=== PATIENT | female | born 1995 | race Caucasian/White ===

== ENCOUNTER 2017-01-09 12:44 | Emergency (ER) | payer OTHER ==
[~2017-01-09] VITALS: Ht 165.1 cm; Wt 113.8 kg
[~2017-01-09 12:44] MED LIST: COL100 PO; MAC100 PO; NORCO1 TA2 PO; OMEPRAZOLE DR20 M1 PO; ZOFRAN ODT4 MG SL
[2017-01-09 16:13] VITALS: BP 123/72
== END 2017-01-09 16:13 | disposition home or self-care (01) ==
LOC: ED 12:44
DX: J02.9 Acute pharyngitis, unspecified (principal); Z88.1 Allergy status to other antibiotic agents

== ENCOUNTER 2017-07-24 07:34 | Emergency (ER) | payer OTHER ==
[~2017-07-24] VITALS: Ht 170.2 cm; Wt 110.7 kg
[2017-07-24 09:54] LABS: CARBON DIOXIDE 26.3 mmol/L (21-32); CHLORIDE SERUM 105 mmol/L (98-107); CREATININE SERUM 0.8 mg/dL (0.6-1.0); GFR1 > 60 mL/min; GLUCOSE SERUM 82 mg/dL (74-106); POTASSIUM SERUM 3.7 mmol/L (3.5-5.1); SODIUM SERUM 140 mmol/L (136-145)
[2017-07-24 10:00] LABS: ALKALINE PHOSPHATASE 75 U/L (46-116); ALT/SGPT 38 U/L (14-59); AST/SGOT 19 U/L (15-37); LIPASE 86 IU/L (73-393); TOTAL PROTEIN, SERUM 6.7 g/dL (6.4-8.2)
[2017-07-24 10:01] LABS: ALBUMIN 3.3 g/dL (3.4-5.0)
[2017-07-24 11:32] LABS: BASOPHIL % 0.3 % (0-2); PLATELET COUNT 244 x10^3mcL (130-400); RED CELL DISTRIBUTION WIDTH 13.3 % (11.5-14.5)
[2017-07-24 15:58] VITALS: BP 128/71
== END 2017-07-24 15:55 | disposition home or self-care (01) ==
LOC: ED 07:34
PROVIDERS: Emergency Medicine
DX: N39.0 Urinary tract infection, site not specified (principal); R10.13 Epigastric pain; Z88.0 Allergy status to penicillin; Z90.49 Acquired absence of other specified parts of digestive tract; Z87.19 Personal history of other diseases of the digestive system
CPT/HCPCS: J1170; J1200; J2060; J2405; J2765

== ENCOUNTER 2017-07-26 06:45 | Emergency (ER) | payer OTHER ==
[2017-07-26 09:31] LABS: BASOPHIL % 0.4 % (0-2); PLATELET COUNT 245 x10^3mcL (130-400); RED CELL DISTRIBUTION WIDTH 13.1 % (11.5-14.5)
[2017-07-26 09:43] LABS: CARBON DIOXIDE 25.7 mmol/L (21-32); CHLORIDE SERUM 104 mmol/L (98-107); CREATININE SERUM 0.9 mg/dL (0.6-1.0); GFR1 > 60 mL/min; GLUCOSE SERUM 83 mg/dL (74-106); POTASSIUM SERUM 3.9 mmol/L (3.5-5.1); SODIUM SERUM 138 mmol/L (136-145)
[2017-07-26 09:47] LABS: ALBUMIN 3.8 g/dL (3.4-5.0); ALKALINE PHOSPHATASE 74 U/L (46-116); ALT/SGPT 46 U/L (14-59); AMYLASE 31 U/L (25-115); AST/SGOT 22 U/L (15-37); BILIRUBIN TOTAL 1.02 mg/dL (0.20-1.00); LIPASE 105 IU/L (73-393); TOTAL PROTEIN, SERUM 7.5 g/dL (6.4-8.2)
[2017-07-26 11:10] VITALS: BP 114/63
== END 2017-07-26 11:11 | disposition home or self-care (01) ==
LOC: ED 06:45
PROVIDERS: Specialist
DX: R10.30 Lower abdominal pain, unspecified (principal); R11.10 Vomiting, unspecified
CPT/HCPCS: 83880; J1885; J2405; J7030

== ENCOUNTER 2017-07-26 19:03 | Emergency (ER) | payer OTHER ==
[2017-07-26 19:50] LABS: CALCIUM 8.7 mg/dL (8.5-10.1); CARBON DIOXIDE 21.8 mmol/L (21-32); CHLORIDE SERUM 106 mmol/L (98-107); GFR1 > 60 mL/min; GLUCOSE SERUM 88 mg/dL (74-106); POTASSIUM SERUM 3.5 mmol/L (3.5-5.1); SODIUM SERUM 140 mmol/L (136-145)
[2017-07-26 19:54] LABS: ALBUMIN 3.8 g/dL (3.4-5.0); ALKALINE PHOSPHATASE 81 U/L (46-116); ALT/SGPT 41 U/L (14-59); AMYLASE 36 U/L (25-115); AST/SGOT 19 U/L (15-37); BILIRUBIN TOTAL 0.8 mg/dL (0.20-1.00); LIPASE 116 IU/L (73-393); TOTAL PROTEIN, SERUM 7.3 g/dL (6.4-8.2)
[2017-07-26 20:02] LABS: BASOPHIL % 0.3 % (0-2); PLATELET COUNT 252 x10^3mcL (130-400)
[2017-07-27 01:04] VITALS: BP 119/75
== END 2017-07-27 01:04 | disposition home or self-care (01) ==
LOC: ED 19:03
PROVIDERS: Emergency Medicine
DX: N83.202 Unspecified ovarian cyst, left side (principal); K21.9 Gastro-esophageal reflux disease without esophagitis; E66.9 Obesity, unspecified; Z90.49 Acquired absence of other specified parts of digestive tract; Z88.1 Allergy status to other antibiotic agents; Z87.19 Personal history of other diseases of the digestive system
CPT/HCPCS: 83880; C9113; J2270; J2405; J2550; J2765; J3490; Q0092

== ENCOUNTER 2017-08-11 05:28 | Emergency (ER) | payer OTHER ==
[2017-08-11 07:53] LABS: CALCIUM 8.5 mg/dL (8.5-10.1); CARBON DIOXIDE 19.1 mmol/L (21-32); CHLORIDE SERUM 109 mmol/L (98-107); CREATININE SERUM 0.9 mg/dL (0.6-1.0); GFR1 > 60 mL/min; GLUCOSE SERUM 105 mg/dL (74-106); POTASSIUM SERUM 3.1 mmol/L (3.5-5.1); SODIUM SERUM 140 mmol/L (136-145)
[2017-08-11 07:58] LABS: ALBUMIN 3.5 g/dL (3.4-5.0); ALKALINE PHOSPHATASE 72 U/L (46-116); ALT/SGPT 46 U/L (14-59); AMYLASE 38 U/L (25-115); AST/SGOT 20 U/L (15-37); BILIRUBIN TOTAL 0.98 mg/dL (0.20-1.00); LIPASE 123 IU/L (73-393); TOTAL PROTEIN, SERUM 6.8 g/dL (6.4-8.2)
[2017-08-11 08:09] LABS: BASOPHIL % 0.5 % (0-2); PLATELET COUNT 232 x10^3mcL (130-400); RED CELL DISTRIBUTION WIDTH 13.9 % (11.5-14.5)
[2017-08-11 10:06] VITALS: BP 118/64
== END 2017-08-11 10:06 | disposition home or self-care (01) ==
LOC: ED 05:28
PROVIDERS: Specialist
DX: R10.13 Epigastric pain (principal); E87.6 Hypokalemia; R11.10 Vomiting, unspecified; Z90.49 Acquired absence of other specified parts of digestive tract; Z88.1 Allergy status to other antibiotic agents
CPT/HCPCS: J0780; J1170; J1885; J2405; J3010; J7030

== ENCOUNTER 2017-08-13 04:16 | Inpatient (IN) | payer OTHER ==
[~2017-08-13] VITALS: Ht 165.1 cm; Wt 108.9 kg
[2017-08-13 05:08] LABS: BASOPHIL % 0.9 % (0-2); PLATELET COUNT 232 x10^3mcL (130-400); RED CELL DISTRIBUTION WIDTH 13.2 % (11.5-14.5); UA SPECIFIC GRAVITY 1.015 (1.005-1.035); microscopic required? YES; urine erythrocyte 3+ (NEGATIVE)
[2017-08-13 05:30] LABS: T3 TOTAL 1.19 ng/mL
[2017-08-13 05:42] LABS: ALBUMIN 3.5 g/dL (3.4-5.0); ALKALINE PHOSPHATASE 78 U/L (46-116); ALT/SGPT 45 U/L (14-59); AST/SGOT 20 U/L (15-37); BILIRUBIN TOTAL 1.4 mg/dL (0.20-1.00); CALCIUM 8.9 mg/dL (8.5-10.1); CARBON DIOXIDE 19.6 mmol/L (21-32); CHLORIDE SERUM 106 mmol/L (98-107); CREATININE SERUM 0.9 mg/dL (0.6-1.0); GFR1 > 60 mL/min; GLUCOSE SERUM 93 mg/dL (74-106); HDL CHOLESTEROL 36 mg/dL (40-60); LIPASE 126 IU/L (73-393); SODIUM SERUM 139 mmol/L (136-145); TOTAL PROTEIN, SERUM 6.9 g/dL (6.4-8.2); TRIGLYCERIDES 55 mg/dL (<150)
[2017-08-13 05:45] LABS: CHOLESTEROL 107 mg/dL (<200)
[2017-08-13 05:46] LABS: POTASSIUM SERUM 2.9 mmol/L (3.5-5.1)
[2017-08-13 05:58] LABS: FREE T4 1.28 ng/dL (0.76-1.46); FREE THYROXINE INDEX 3.5 ug/dL (1.4-4.5); T4(THYROXINE) 9.5 ug/dL (4.7-13.3)
[2017-08-13 08:14] LABS: PHOSPHOROUS 1.6 mg/dL (2.5-4.9)
[2017-08-13 08:44] LABS: AMPHETAMINE QUAL UR NONE DETECTED (NEG <=1000)
[2017-08-13 09:23] VITALS: BP 135/89
[2017-08-13 09:39] VITALS: BP 114/74
[2017-08-13 09:55] LABS: CALCIUM 8.2 mg/dL (8.5-10.1); CARBON DIOXIDE 20.3 mmol/L (21-32); CHLORIDE SERUM 105 mmol/L (98-107); CREATININE SERUM 0.8 mg/dL (0.6-1.0); GFR1 > 60 mL/min; GLUCOSE SERUM 84 mg/dL (74-106); POTASSIUM SERUM 3.2 mmol/L (3.5-5.1); SODIUM SERUM 141 mmol/L (136-145)
[2017-08-13 14:02] VITALS: BP 118/70
[2017-08-13 17:52] VITALS: BP 126/79
[2017-08-13 21:23] VITALS: BP 104/58
[2017-08-14 05:31] VITALS: BP 101/60
[2017-08-14 07:21] LABS: BASOPHIL % 0.5 % (0-2); PLATELET COUNT 222 x10^3mcL (130-400); RED CELL DISTRIBUTION WIDTH 13.6 % (11.5-14.5)
[2017-08-14 07:49] LABS: CALCIUM 8.2 mg/dL (8.5-10.1); CARBON DIOXIDE 22.4 mmol/L (21-32); CHLORIDE SERUM 109 mmol/L (98-107); CREATININE SERUM 0.7 mg/dL (0.6-1.0); GFR1 > 60 mL/min; GLUCOSE SERUM 65 mg/dL (74-106); MAGNESIUM 1.9 mg/dL (1.8-2.4); PHOSPHOROUS 3.1 mg/dL (2.5-4.9); POTASSIUM SERUM 3.6 mmol/L (3.5-5.1); SODIUM SERUM 139 mmol/L (136-145)
[2017-08-14 09:31] VITALS: BP 125/77
[2017-08-14 12:17] VITALS: BP 118/82
[2017-08-14 17:10] VITALS: BP 119/77
[2017-08-14 20:42] VITALS: BP 108/73
[2017-08-15 06:04] VITALS: BP 107/70
[2017-08-15 06:16] LABS: BASOPHIL % 0.4 % (0-2); PLATELET COUNT 223 x10^3mcL (130-400); RED CELL DISTRIBUTION WIDTH 13.8 % (11.5-14.5)
[2017-08-15 06:42] LABS: CALCIUM 8.6 mg/dL (8.5-10.1); CARBON DIOXIDE 22.9 mmol/L (21-32); CHLORIDE SERUM 105 mmol/L (98-107); CREATININE SERUM 0.8 mg/dL (0.6-1.0); GFR1 > 60 mL/min; GLUCOSE SERUM 71 mg/dL (74-106); POTASSIUM SERUM 3.5 mmol/L (3.5-5.1); SODIUM SERUM 139 mmol/L (136-145)
[2017-08-15] MEDS ORDERED: MIRUD PO (07:49)
[2017-08-15 10:00] VITALS: BP 126/76
[2017-08-15] MEDS ORDERED: ELA25 PO (12:37)
[2017-08-15] MEDS ORDERED: PRI20 PO (12:38)
[2017-08-15 12:45] VITALS: BP 121/79
[2017-08-15 14:03] VITALS: BP 121/79
== END 2017-08-15 15:00 | disposition home or self-care (01) | DRG 241 ==
LOC: ED 04:16 → DU 06:00
PROVIDERS: Internal Medicine Gastroenterology; Specialist; ADMIT Family Medicine
PROC: 0DB68ZX Excision of Stomach, Via Natural or Artificial Opening Endoscopic, Diagnostic (ICD-10-PCS; principal; 2017-08-14 12:30)
DX: K29.70 Gastritis, unspecified, without bleeding (principal); N17.0 Acute kidney failure with tubular necrosis; K21.9 Gastro-esophageal reflux disease without esophagitis; E83.39 Other disorders of phosphorus metabolism; N39.0 Urinary tract infection, site not specified; E87.6 Hypokalemia; R31.9 Hematuria, unspecified; R80.9 Proteinuria, unspecified; F12.10 Cannabis abuse, uncomplicated; E80.6 Other disorders of bilirubin metabolism; E78.5 Hyperlipidemia, unspecified; Z68.39 Body mass index [BMI] 39.0-39.9, adult; Z88.8 Allergy status to other drugs, medicaments and biological substances; Z90.49 Acquired absence of other specified parts of digestive tract; Z83.3 Family history of diabetes mellitus; Z82.49 Family history of ischemic heart disease and other diseases of the circulatory system; F41.1 Generalized anxiety disorder; F33.9 Major depressive disorder, recurrent, unspecified; E66.01 Morbid (severe) obesity due to excess calories
CPT/HCPCS: 43235; 83880; 84439; J1170; J1200; J1610; J1885; J1956; J2250; J2310; J2405; J2550; J2765; J3010; J3475; J3480; J3490; J7030; Q0092; Q9967

== ENCOUNTER 2017-08-24 21:53 | Emergency (ER) | payer OTHER ==
[~2017-08-24 21:53] MED LIST changes: +ELA25 PO; +MIRUD PO; +PRI20 PO
[2017-08-25 00:27] VITALS: BP 124/75
== END 2017-08-25 00:27 | disposition home or self-care (01) ==
LOC: ED 21:53
DX: R10.9 Unspecified abdominal pain (principal); R11.2 Nausea with vomiting, unspecified; R51 Headache; Z88.1 Allergy status to other antibiotic agents
CPT/HCPCS: J1170; Q0162

== ENCOUNTER 2017-09-04 04:52 | Emergency (ER) | payer OTHER ==
[~2017-09-04] VITALS: Ht 167.6 cm; Wt 104.3 kg
[2017-09-04 04:57] VITALS: Ht 167.6 cm; Wt 104.3 kg
[2017-09-04 06:59] LABS: BASOPHIL % 1.9 % (0-2); PLATELET COUNT 233 x10^3mcL (130-400); RED CELL DISTRIBUTION WIDTH 13.3 % (11.5-14.5)
[2017-09-04 07:12] LABS: CALCIUM 8.9 mg/dL (8.5-10.1); CARBON DIOXIDE 21.1 mmol/L (21-32); CHLORIDE SERUM 106 mmol/L (98-107); CREATININE SERUM 0.7 mg/dL (0.6-1.0); GFR1 > 60 mL/min; GLUCOSE SERUM 106 mg/dL (74-106); POTASSIUM SERUM 3.8 mmol/L (3.5-5.1); SODIUM SERUM 138 mmol/L (136-145)
[2017-09-04 07:22] LABS: ALBUMIN 3.6 g/dL (3.4-5.0); ALKALINE PHOSPHATASE 83 U/L (46-116); ALT/SGPT 73 U/L (14-59); AST/SGOT 30 U/L (15-37); BILIRUBIN TOTAL 0.89 mg/dL (0.20-1.00); LIPASE 141 IU/L (73-393); TOTAL PROTEIN, SERUM 7.1 g/dL (6.4-8.2)
[2017-09-04 09:08] VITALS: BP 117/88
== END 2017-09-04 09:08 | disposition home or self-care (01) ==
LOC: ED 04:52
PROVIDERS: Emergency Medicine
DX: K29.70 Gastritis, unspecified, without bleeding (principal); Z88.1 Allergy status to other antibiotic agents
CPT/HCPCS: J2405; J2550; J7030

== ENCOUNTER 2017-09-06 00:37 | Emergency (ER) | payer OTHER ==
[~2017-09-06] VITALS: Ht 167.6 cm; Wt 103.0 kg
[2017-09-06 00:40] VITALS: Ht 167.6 cm; Wt 103.0 kg
[2017-09-06 02:37] LABS: PLATELET COUNT 239 x10^3mcL (130-400); RED CELL DISTRIBUTION WIDTH 13.4 % (11.5-14.5)
[2017-09-06 02:53] LABS: BASOPHIL % 4.1 % (0-2)
[2017-09-06 02:54] LABS: CALCIUM 9.4 mg/dL (8.5-10.1); CARBON DIOXIDE 27.4 mmol/L (21-32); CHLORIDE SERUM 103 mmol/L (98-107); CREATININE SERUM 0.7 mg/dL (0.6-1.0); GFR1 > 60 mL/min; GLUCOSE SERUM 97 mg/dL (74-106); POTASSIUM SERUM 3.6 mmol/L (3.5-5.1); SODIUM SERUM 139 mmol/L (136-145)
[2017-09-06 02:59] LABS: ALBUMIN 3.9 g/dL (3.4-5.0); ALKALINE PHOSPHATASE 79 U/L (46-116); ALT/SGPT 69 U/L (14-59); AMYLASE 41 U/L (25-115); AST/SGOT 24 U/L (15-37); BILIRUBIN TOTAL 1.03 mg/dL (0.20-1.00); LIPASE 130 IU/L (73-393); TOTAL PROTEIN, SERUM 7.7 g/dL (6.4-8.2)
[2017-09-06 03:25] LABS: microscopic required? NO
[2017-09-06 03:52] LABS: urine erythrocyte NEGATIVE (NEGATIVE)
[2017-09-06 04:49] VITALS: BP 117/65
== END 2017-09-06 04:49 | disposition home or self-care (01) ==
LOC: ED 00:37
PROVIDERS: Emergency Medicine; Specialist
DX: R10.9 Unspecified abdominal pain (principal); R11.10 Vomiting, unspecified; Z88.0 Allergy status to penicillin; Z90.49 Acquired absence of other specified parts of digestive tract; Z87.19 Personal history of other diseases of the digestive system
CPT/HCPCS: 83880; J1885; J2550; J3490; J7030

== ENCOUNTER 2018-02-17 11:59 | Emergency (ER) | payer SELFPAY ==
[~2018-02-17] VITALS: Ht 165.1 cm; Wt 92.5 kg
[2018-02-17 12:02] VITALS: Ht 165.1 cm; Wt 92.5 kg
[2018-02-17 14:55] VITALS: BP 115/74
== END 2018-02-17 14:55 | disposition home or self-care (01) ==
LOC: ED 11:59
DX: F41.9 Anxiety disorder, unspecified (principal); Z90.49 Acquired absence of other specified parts of digestive tract; Z88.1 Allergy status to other antibiotic agents
CPT/HCPCS: J1885; J2550; J3490; J7030; Q0162

== ENCOUNTER 2018-02-19 08:41 | Emergency (ER) | payer OTHER ==
[~2018-02-19] VITALS: Ht 167.6 cm; Wt 92.5 kg
[2018-02-19 08:43] VITALS: Ht 167.6 cm; Wt 92.5 kg
[2018-02-19 09:49] LABS: BASOPHIL % 0.3 % (0-2); PLATELET COUNT 247 x10^3mcL (130-400); RED CELL DISTRIBUTION WIDTH 13.3 % (11.5-14.5)
[2018-02-19 09:59] LABS: CALCIUM 8.6 mg/dL (8.5-10.1); CHLORIDE SERUM 107 mmol/L (98-107); CREATININE SERUM 0.8 mg/dL (0.6-1.0); GFR1 > 60 mL/min; GLUCOSE SERUM 79 mg/dL (74-106); POTASSIUM SERUM 3.8 mmol/L (3.5-5.1); SODIUM SERUM 142 mmol/L (136-145)
[2018-02-19 10:03] LABS: ALBUMIN 3.6 g/dL (3.4-5.0); ALKALINE PHOSPHATASE 75 U/L (46-116); ALT/SGPT 29 U/L (14-59); AMYLASE 43 U/L (25-115); AST/SGOT 12 U/L (15-37); BILIRUBIN TOTAL 1.29 mg/dL (0.20-1.00); LIPASE 110 IU/L (73-393); TOTAL PROTEIN, SERUM 6.8 g/dL (6.4-8.2)
[2018-02-19 10:35] LABS: UA SPECIFIC GRAVITY 1.025 (1.005-1.035); microscopic required? YES; urine erythrocyte NEGATIVE (NEGATIVE)
[2018-02-19 10:48] LABS: AMPHETAMINE QUAL UR NONE DETECTED (NEG <=1000)
[2018-02-19 11:12] VITALS: BP 125/60
== END 2018-02-19 11:12 | disposition home or self-care (01) ==
LOC: ED 08:41
PROVIDERS: Emergency Medicine
DX: G89.29 Other chronic pain (principal); Z90.49 Acquired absence of other specified parts of digestive tract; Z88.1 Allergy status to other antibiotic agents
CPT/HCPCS: 83880; J1200; J1630

== ENCOUNTER 2018-10-15 13:31 | Emergency (ER) | payer OTHER ==
[~2018-10-15] VITALS: Ht 167.6 cm; Wt 80.7 kg
[2018-10-15 13:43] VITALS: BP 121/60; Ht 167.6 cm; Wt 80.7 kg
== END 2018-10-15 16:08 | disposition home or self-care (01) ==
LOC: ED 13:31
DX: N94.6 Dysmenorrhea, unspecified (principal); N80.9 Endometriosis, unspecified; N83.209 Unspecified ovarian cyst, unspecified side; F41.9 Anxiety disorder, unspecified; Z90.49 Acquired absence of other specified parts of digestive tract; Z88.1 Allergy status to other antibiotic agents
CPT/HCPCS: J1885; Q0162

== ENCOUNTER 2019-11-07 07:19 | Emergency (ER) | payer OTHER ==
[~2019-11-07] VITALS: Ht 167.6 cm; Wt 74.4 kg
[2019-11-07 07:22] VITALS: Ht 167.6 cm; Wt 74.4 kg
[2019-11-07 09:12] VITALS: BP 100/65
== END 2019-11-07 09:12 | disposition home or self-care (01) ==
LOC: ED 07:19
DX: N80.9 Endometriosis, unspecified (principal); Z88.1 Allergy status to other antibiotic agents; Z90.49 Acquired absence of other specified parts of digestive tract
CPT/HCPCS: J1885; J3010; Q0162

== ENCOUNTER 2019-11-16 00:17 | Emergency (ER) | payer OTHER ==
[~2019-11-16] VITALS: Ht 167.6 cm; Wt 73.9 kg
[2019-11-16 00:25] VITALS: Ht 167.6 cm; Wt 73.9 kg
[2019-11-16 01:05] LABS: BASOPHIL % 0.7 % (0-2); PLATELET COUNT 261 x10^3mcL (130-400); RED CELL DISTRIBUTION WIDTH 12.3 % (11.5-14.5)
[2019-11-16 01:12] LABS: CARBON DIOXIDE 20.9 mmol/L (21-32); CHLORIDE SERUM 104 mmol/L (98-107); CREATININE SERUM 0.8 mg/dL (0.6-1.0); GFR1 > 60 mL/min; GLUCOSE SERUM 108 mg/dL (74-106); POTASSIUM SERUM 3.1 mmol/L (3.5-5.1); SODIUM SERUM 138 mmol/L (136-145)
[2019-11-16 01:16] LABS: ALBUMIN 3.9 g/dL (3.4-5.0); ALKALINE PHOSPHATASE 82 U/L (46-116); ALT/SGPT 18 U/L (14-59); AST/SGOT 14 U/L (15-37); BILIRUBIN TOTAL 0.68 mg/dL (0.20-1.00); LIPASE 112 IU/L (73-393); TOTAL PROTEIN, SERUM 7.4 g/dL (6.4-8.2)
[2019-11-16 01:47] LABS: UA SPECIFIC GRAVITY 1.015 (1.005-1.035); microscopic required? YES; urine erythrocyte NEGATIVE (NEGATIVE)
[2019-11-16 02:31] VITALS: BP 95/56
== END 2019-11-16 02:48 | disposition home or self-care (01) ==
LOC: ED 00:17
PROVIDERS: Emergency Medicine
DX: N39.0 Urinary tract infection, site not specified (principal); Z88.0 Allergy status to penicillin; Z90.49 Acquired absence of other specified parts of digestive tract
CPT/HCPCS: 87491; 87591; J1200; J1885; J2270; J2405; J7030

== ENCOUNTER 2019-11-17 06:48 | Emergency (ER) | payer OTHER ==
[~2019-11-17] VITALS: Ht 167.6 cm; Wt 75.7 kg
[2019-11-17 06:49] VITALS: Ht 167.6 cm; Wt 75.7 kg
[2019-11-17 07:59] LABS: BASOPHIL % 0.4 % (0-2); PLATELET COUNT 213 x10^3mcL (130-400); RED CELL DISTRIBUTION WIDTH 13.2 % (11.5-14.5)
[2019-11-17 08:52] LABS: CALCIUM 8.6 mg/dL (8.5-10.1); CHLORIDE SERUM 108 mmol/L (98-107); CREATININE SERUM 0.8 mg/dL (0.6-1.0); GFR1 > 60 mL/min; GLUCOSE SERUM 85 mg/dL (74-106); POTASSIUM SERUM 3.6 mmol/L (3.5-5.1); SODIUM SERUM 142 mmol/L (136-145)
[2019-11-17 08:58] LABS: ALBUMIN 3.3 g/dL (3.4-5.0); ALKALINE PHOSPHATASE 60 U/L (46-116); ALT/SGPT 19 U/L (14-59); AMYLASE 42 U/L (25-115); AST/SGOT 11 U/L (15-37); BILIRUBIN TOTAL 0.93 mg/dL (0.20-1.00); LIPASE 82 IU/L (73-393); TOTAL PROTEIN, SERUM 6.3 g/dL (6.4-8.2)
[2019-11-17 09:19] VITALS: BP 101/65
== END 2019-11-17 09:19 | disposition home or self-care (01) ==
LOC: ED 06:48
PROVIDERS: Emergency Medicine
DX: R10.32 Left lower quadrant pain (principal); R11.2 Nausea with vomiting, unspecified; Z88.1 Allergy status to other antibiotic agents; Z90.49 Acquired absence of other specified parts of digestive tract
CPT/HCPCS: J1200; J1630; J2270; J2405; J7030

== ENCOUNTER 2019-12-06 10:50 | Emergency (ER) | payer OTHER ==
[~2019-12-06] VITALS: Ht 167.6 cm; Wt 73.9 kg
[2019-12-06 11:00] VITALS: Ht 167.6 cm; Wt 73.9 kg
[2019-12-06 13:40] VITALS: BP 108/60
== END 2019-12-06 13:40 | disposition home or self-care (01) ==
LOC: ED 10:50
DX: F41.9 Anxiety disorder, unspecified (principal); Z88.0 Allergy status to penicillin; Z87.19 Personal history of other diseases of the digestive system; Z90.49 Acquired absence of other specified parts of digestive tract
CPT/HCPCS: Q0163